=== PATIENT | female | born 1950 | race Caucasian/White ===

== ENCOUNTER 2017-07-06 20:11 | Emergency (ER) | payer MEDICARE ==
[~2017-07-06] VITALS: Ht 160 cm; Wt 71.4 kg
[2017-07-06 20:55] LABS: HEMATOCRIT 40.7 % (37.0-47.0); HEMOGLOBIN 13.7 g/dl (12.0-16.0); IMMATURE GRANULOCYTES 0.2 % (0.0-1.0); MEAN CELL VOLUME 91.7 fL CALC (80.0-100.0); MEAN CORPUSCULAR HGB 30.9 pG CALC (26.0-32.0); MEAN CORPUSCULAR HGB CONC 33.7 g/L CALC (32.0-36.0); NEUT# 5.15 thou/uL (2.00-7.15); RED BLOOD COUNT 4.44 mill/uL (4.20-5.60); RED CELL DISTRI WIDTH 13.4 % (11.5-15.5)
[2017-07-06] MEDS ORDERED: SINGULAIR10 MG PO (20:57)
[2017-07-06] MEDS ORDERED: PROAIR HFA108 MCG/AC (20:57)
[2017-07-06] MEDS ORDERED: LANSOPRAZOLE30 MG PO (20:58)
[2017-07-06] MEDS ORDERED: ALLERGY RE50 MCG/ACT (20:58)
[2017-07-06] MEDS ORDERED: MELOXICAM15 MG PO (20:59)
[2017-07-06] MEDS ORDERED: OXYCOD/APAP1 TA4 PO (20:59)
[2017-07-06] MEDS ORDERED: NEURONTIN300 MG PO (20:59)
[2017-07-06] MEDS ORDERED: TIZANIDINE HCL4 MG PO (21:00)
[2017-07-06] MEDS ORDERED: TRAZODONE50 MG PO (21:00)
[2017-07-06] MEDS ORDERED: XANAX1 MG PO (21:01)
[2017-07-06] MEDS ORDERED: ZOLOFT50 MG PO (21:01)
[2017-07-06] MEDS ORDERED: RISPERIDONE2 MG PO (21:01)
[2017-07-06] MEDS ORDERED: SERTRALINE50 MG PO (21:02)
[2017-07-06 21:04] LABS: ALBUMIN 3.5 g/dL (3.2-5.0); ALKALINE PHOSPHATASE 81 u/l (38-126); ANION GAP 13 (6-22 (CALC)); BILIRUBIN, TOTAL 0.2 mg/dL (0.0-1.4); BUN 13 mg/dL (8-23); BUN/CREATININE RATIO 18 (12-20 (CALC)); CALCIUM 9.4 mg/dL (8.4-10.2); CARBON DIOXIDE 25 mmol/l (22-30); CHLORIDE 105 mmol/l (95-108); CREATININE 0.7 mg/dL (0.5-1.0); GFR > 60 ML/MIN (>=60 (CALC)); GFR FOR AFR.AMER. > 60 ML/MIN (>=60 (CALC)); GLUCOSE 201 mg/dL (82-115); POTASSIUM 3.7 mmol/l (3.5-5.1); SGOT/AST 20 u/l (9-36); SGPT/ALT 22 u/l (11-66); SODIUM 139 mmol/l (137-146); TOTAL PROTEIN 5.8 g/dL (6.3-8.2)
[2017-07-06] MEDS ORDERED: ANTIVERT PO (22:17)
[2017-07-06 22:30] VITALS: BP 117/69
== END 2017-07-06 22:39 | disposition home or self-care (01) ==
LOC: ED 20:11
PROVIDERS: Emergency Medicine
DX: R42 Dizziness and giddiness (principal); K21.9 Gastro-esophageal reflux disease without esophagitis; M19.90 Unspecified osteoarthritis, unspecified site; F31.9 Bipolar disorder, unspecified; F41.9 Anxiety disorder, unspecified; F17.210 Nicotine dependence, cigarettes, uncomplicated

== ENCOUNTER 2017-11-19 07:11 | Emergency (ER) | payer MEDICARE ==
[~2017-11-19] VITALS: Ht 160 cm; Wt 69.5 kg
[~2017-11-19 07:11] MED LIST: ALLERGY RE50 MCG/ACT; ANTIVERT PO; LANSOPRAZOLE30 MG PO; MELOXICAM15 MG PO; NEURONTIN300 MG PO; OXYCOD/APAP1 TA4 PO; PROAIR HFA108 MCG/AC; RISPERIDONE2 MG PO; SERTRALINE50 MG PO; SINGULAIR10 MG PO; TIZANIDINE HCL4 MG PO; TRAZODONE50 MG PO; XANAX1 MG PO; ZOLOFT50 MG PO
[2017-11-19 07:48] LABS: URINE BILIRUBIN - DIPSTICK NEGATIVE (NEGATIVE); URINE COLOR YELLOW; URINE GLUCOSE - DIPSTICK NEGATIVE (NEGATIVE); URINE KETONE NEGATIVE (NEGATIVE); URINE LEUK ESTERASE NEGATIVE (NEGATIVE); URINE NITRITE - DIPSTICK NEGATIVE (Negative); URINE PH 5.5 (4.5-8.0); URINE PROTEIN - DIPSTICK NEGATIVE (NEG-TRACE); URINE SPECIFIC GRAVITY <=1.005; URINE UROBILINOGEN - DIPSTICK 0.2 E.U./dL (0.2)
[2017-11-19 07:50] LABS: HEMATOCRIT 45.7 % (37.0-47.0); HEMOGLOBIN 14.9 g/dl (12.0-16.0); IMMATURE GRANULOCYTES 0.2 % (0.0-1.0); MEAN CELL VOLUME 92.5 fL CALC (80.0-100.0); MEAN CORPUSCULAR HGB 30.2 pG CALC (26.0-32.0); MEAN CORPUSCULAR HGB CONC 32.6 g/L CALC (32.0-36.0); NEUT# 4.25 thou/uL (2.00-7.15); RED BLOOD COUNT 4.94 mill/uL (4.20-5.60); RED CELL DISTRI WIDTH 13.8 % (11.5-15.5)
[2017-11-19 07:50] LABS: URINE BLOOD DIPSTICK NEGATIVE (NEGATIVE); URINE CLARITY CLEAR
[2017-11-19 07:52] LABS: BARBITURATES NEGATIVE (NEGATIVE); COCAINE NEGATIVE (NEGATIVE); METHADONE NEGATIVE (NEGATIVE); OXCYCODONE NEGATIVE (NEGATIVE); TETRAHYDROCANNABIONOL NEGATIVE (NEGATIVE); TRICYLIC ANTIDEPRESSANTS NEGATIVE (NEGATIVE)
[2017-11-19 07:59] LABS: ALBUMIN 3.8 g/dL (3.2-5.0); ALKALINE PHOSPHATASE 77 u/l (38-126); ANION GAP 15 (6-22 (CALC)); BILIRUBIN, TOTAL 0.2 mg/dL (0.0-1.4); BUN 17 mg/dL (8-23); BUN/CREATININE RATIO 21 (12-20 (CALC)); CARBON DIOXIDE 29 mmol/l (22-30); CHLORIDE 98 mmol/l (95-108); CREATININE 0.8 mg/dL (0.5-1.0); GFR > 60 ML/MIN (>=60 (CALC)); GFR FOR AFR.AMER. > 60 ML/MIN (>=60 (CALC)); POTASSIUM 4.4 mmol/l (3.5-5.1); SGOT/AST 21 u/l (9-36); SGPT/ALT 37 u/l (11-66); SODIUM 138 mmol/l (137-146); TOTAL PROTEIN 6.8 g/dL (6.3-8.2)
[2017-11-19 08:43] LABS: TSH, 3RD GENERATION 2.91 uIU/mL (0.47 - 4.68)
[2017-11-19] MEDS ORDERED: ZITHROMAX250 MG PO (09:25)
[2017-11-19 09:43] VITALS: BP 114/80
== END 2017-11-19 09:51 | disposition home or self-care (01) ==
LOC: ED 07:11
PROVIDERS: Emergency Medicine
DX: R42 Dizziness and giddiness (principal); J32.9 Chronic sinusitis, unspecified; R00.1 Bradycardia, unspecified; M19.90 Unspecified osteoarthritis, unspecified site

== ENCOUNTER 2017-12-15 17:36 | Emergency (ER) | payer MEDICARE ==
[~2017-12-15] VITALS: Ht 160 cm; Wt 71.0 kg
[~2017-12-15 17:36] MED LIST changes: +ZITHROMAX250 MG PO
[2017-12-15] MEDS ORDERED: PERCOCET1 TA4 PO (18:13)
[2017-12-15] MEDS ORDERED: IBUPROFEN600 MG PO (19:30)
[2017-12-15 19:38] VITALS: BP 121/70
== END 2017-12-15 19:38 | disposition home or self-care (01) ==
LOC: ED 17:36
DX: S09.11XA Strain of muscle and tendon of head, initial encounter (principal); M19.90 Unspecified osteoarthritis, unspecified site; R42 Dizziness and giddiness; V48.5XXA Car driver injured in noncollision transport accident in traffic accident, initial encounter

== ENCOUNTER 2017-12-25 14:01 | Emergency (ER) | payer MEDICARE ==
[~2017-12-25] VITALS: Ht 160 cm; Wt 52.0 kg
[~2017-12-25 14:01] MED LIST changes: +IBUPROFEN600 MG PO; +PERCOCET1 TA4 PO
[2017-12-25] MEDS ORDERED: TORADOL PO (15:23)
[2017-12-25] MEDS ORDERED: FLEXERIL PO (15:23)
[2017-12-25 15:28] VITALS: BP 138/87
== END 2017-12-25 15:35 | disposition home or self-care (01) ==
LOC: ED 14:01
DX: G89.29 Other chronic pain (principal); M54.2 Cervicalgia; M19.90 Unspecified osteoarthritis, unspecified site

== ENCOUNTER 2018-01-26 12:23 | Emergency (ER) | payer MEDICARE ==
[~2018-01-26] VITALS: Ht 160 cm; Wt 73.0 kg
[~2018-01-26 12:23] MED LIST changes: +FLEXERIL PO; +TORADOL PO
[2018-01-26 13:32] LABS: URINE BILIRUBIN - DIPSTICK NEGATIVE (NEGATIVE); URINE BLOOD DIPSTICK NEGATIVE (NEGATIVE); URINE CLARITY CLEAR; URINE COLOR YELLOW; URINE GLUCOSE - DIPSTICK NEGATIVE (NEGATIVE); URINE KETONE NEGATIVE (NEGATIVE); URINE LEUK ESTERASE NEGATIVE (NEGATIVE); URINE NITRITE - DIPSTICK NEGATIVE (Negative); URINE PH 6.5 (4.5-8.0); URINE PROTEIN - DIPSTICK NEGATIVE (NEG-TRACE); URINE UROBILINOGEN - DIPSTICK 0.2 E.U./dL (0.2)
[2018-01-26 14:13] LABS: HEMATOCRIT 44.1 % (37.0-47.0); HEMOGLOBIN 14.3 g/dl (12.0-16.0); IMMATURE GRANULOCYTES 0.2 % (0.0-1.0); MEAN CELL VOLUME 91.7 fL CALC (80.0-100.0); MEAN CORPUSCULAR HGB 29.7 pG CALC (26.0-32.0); MEAN CORPUSCULAR HGB CONC 32.4 g/L CALC (32.0-36.0); NEUT# 4.91 thou/uL (2.00-7.15); RED BLOOD COUNT 4.81 mill/uL (4.20-5.60); RED CELL DISTRI WIDTH 13.1 % (11.5-15.5)
[2018-01-26 14:34] LABS: ALBUMIN 4.5 g/dL (3.2-5.0); ALKALINE PHOSPHATASE 91 u/l (38-126); AMYLASE 45 u/l (30-110); ANION GAP 13 (6-22 (CALC)); BILIRUBIN, TOTAL 0.4 mg/dL (0.0-1.4); BUN 15 mg/dL (8-23); BUN/CREATININE RATIO 19 (12-20 (CALC)); CARBON DIOXIDE 30 mmol/l (22-30); CHLORIDE 98 mmol/l (95-108); CREATININE 0.8 mg/dL (0.5-1.0); GFR > 60 ML/MIN (>=60 (CALC)); GFR FOR AFR.AMER. > 60 ML/MIN (>=60 (CALC)); LIPASE 209 u/l (23-300); POTASSIUM 4.7 mmol/l (3.5-5.1); SGOT/AST 24 u/l (9-36); SGPT/ALT 31 u/l (11-66); SODIUM 136 mmol/l (137-146); TOTAL PROTEIN 7.6 g/dL (6.3-8.2)
[2018-01-26] MEDS ORDERED: FLEXERIL PO (16:58)
[2018-01-26] MEDS ORDERED: ULTRAM50 M1 PO (16:58)
[2018-01-26 17:35] VITALS: BP 113/57
== END 2018-01-26 17:35 | disposition home or self-care (01) ==
LOC: ED 12:23
PROVIDERS: Emergency Medicine
DX: M79.1 Myalgia (principal); M19.90 Unspecified osteoarthritis, unspecified site; R42 Dizziness and giddiness; Z90.49 Acquired absence of other specified parts of digestive tract
CPT/HCPCS: Q9967

== ENCOUNTER 2018-02-16 18:15 | Emergency (ER) | payer MEDICARE ==
[~2018-02-16] VITALS: Ht 160 cm; Wt 75.0 kg
[~2018-02-16 18:15] MED LIST changes: +ULTRAM50 M1 PO
[2018-02-16] MEDS ORDERED: TIZANIDINE HCL4 MG PO (19:07)
[2018-02-16 19:10] LABS: HEMATOCRIT 39.4 % (37.0-47.0); HEMOGLOBIN 13.1 g/dl (12.0-16.0); IMMATURE GRANULOCYTES 0.1 % (0.0-5.0); MEAN CELL VOLUME 90.6 fL CALC (80.0-100.0); MEAN CORPUSCULAR HGB 30.1 pG CALC (26.0-32.0); MEAN CORPUSCULAR HGB CONC 33.2 g/L CALC (32.0-36.0); NEUT# 4.18 thou/uL (2.00-7.15); RED BLOOD COUNT 4.35 mill/uL (4.20-5.60); RED CELL DISTRI WIDTH 12.8 % (11.5-15.5)
[2018-02-16 19:39] LABS: ALBUMIN 3.8 g/dL (3.2-5.0); BILIRUBIN, TOTAL 0.4 mg/dL (0.0-1.4); CREATININE 1.2 mg/dL (0.5-1.0); POTASSIUM 4.6 mmol/l (3.5-5.1); TOTAL PROTEIN 6.4 g/dL (6.3-8.2)
[2018-02-16 22:09] LABS: URINE BILIRUBIN - DIPSTICK NEGATIVE (NEGATIVE); URINE BLOOD DIPSTICK NEGATIVE (NEGATIVE); URINE COLOR YELLOW; URINE GLUCOSE - DIPSTICK NEGATIVE (NEGATIVE); URINE KETONE NEGATIVE (NEGATIVE); URINE LEUK ESTERASE TRACE (NEGATIVE); URINE NITRITE - DIPSTICK NEGATIVE (Negative); URINE PH 5.5 (4.5-8.0); URINE PROTEIN - DIPSTICK NEGATIVE (NEG-TRACE); URINE SPECIFIC GRAVITY <=1.005; URINE UROBILINOGEN - DIPSTICK 0.2 E.U./dL (0.2)
[2018-02-16 22:10] LABS: URINE CLARITY CLEAR
[2018-02-16 22:30] VITALS: BP 114/69
[2018-02-16] MEDS ORDERED: MIRALAX3350 N1 PO (22:30)
== END 2018-02-16 22:30 | disposition home or self-care (01) ==
LOC: ED 18:15
PROVIDERS: Family Medicine
DX: K59.00 Constipation, unspecified (principal)

== ENCOUNTER 2018-02-19 22:38 | Emergency (ER) | payer MEDICARE ==
[~2018-02-19] VITALS: Ht 160 cm; Wt 73.6 kg
[~2018-02-19 22:38] MED LIST changes: +MIRALAX3350 N1 PO
[2018-02-19 23:05] LABS: HEMATOCRIT 40.1 % (37.0-47.0); HEMOGLOBIN 13.3 g/dl (12.0-16.0); IMMATURE GRANULOCYTES 0.2 % (0.0-5.0); MEAN CELL VOLUME 90.9 fL CALC (80.0-100.0); MEAN CORPUSCULAR HGB 30.2 pG CALC (26.0-32.0); MEAN CORPUSCULAR HGB CONC 33.2 g/L CALC (32.0-36.0); NEUT# 4.05 thou/uL (2.00-7.15); RED BLOOD COUNT 4.41 mill/uL (4.20-5.60); RED CELL DISTRI WIDTH 12.9 % (11.5-15.5)
[2018-02-19 23:18] LABS: ALBUMIN 3.9 g/dL (3.2-5.0); ALKALINE PHOSPHATASE 75 u/l (38-126); ANION GAP 13 (6-22 (CALC)); BILIRUBIN, TOTAL 0.4 mg/dL (0.0-1.4); BUN 12 mg/dL (8-23); BUN/CREATININE RATIO 16 (12-20 (CALC)); CARBON DIOXIDE 29 mmol/l (22-30); CHLORIDE 103 mmol/l (95-108); CREATININE 0.8 mg/dL (0.5-1.0); GFR > 60 ML/MIN (>=60 (CALC)); GFR FOR AFR.AMER. > 60 ML/MIN (>=60 (CALC)); POTASSIUM 4.3 mmol/l (3.5-5.1); SGOT/AST 21 u/l (9-36); SGPT/ALT 25 u/l (11-66); SODIUM 141 mmol/l (137-146); TOTAL PROTEIN 6.6 g/dL (6.3-8.2)
[2018-02-19 23:42] LABS: URINE BILIRUBIN - DIPSTICK NEGATIVE (NEGATIVE); URINE BLOOD DIPSTICK NEGATIVE (NEGATIVE); URINE COLOR YELLOW; URINE GLUCOSE - DIPSTICK NEGATIVE (NEGATIVE); URINE KETONE NEGATIVE (NEGATIVE); URINE LEUK ESTERASE NEGATIVE (NEGATIVE); URINE NITRITE - DIPSTICK NEGATIVE (Negative); URINE PROTEIN - DIPSTICK NEGATIVE (NEG-TRACE); URINE UROBILINOGEN - DIPSTICK 0.2 E.U./dL (0.2)
[2018-02-19 23:43] LABS: URINE CLARITY CLEAR
[2018-02-20 02:09] VITALS: BP 97/51
== END 2018-02-20 02:00 | disposition home or self-care (01) ==
LOC: ED 22:38
PROVIDERS: Emergency Medicine
DX: K59.00 Constipation, unspecified (principal); R10.13 Epigastric pain; Z79.891 Long term (current) use of opiate analgesic; Z98.0 Intestinal bypass and anastomosis status

== ENCOUNTER 2018-03-08 00:37 | Emergency (ER) | payer MEDICARE ==
[~2018-03-08] VITALS: Ht 160 cm; Wt 72.7 kg
[2018-03-08 01:41] LABS: HEMATOCRIT 40.9 % (37.0-47.0); HEMOGLOBIN 13.4 g/dl (12.0-16.0); IMMATURE GRANULOCYTES 0.2 % (0.0-5.0); MEAN CELL VOLUME 92.3 fL CALC (80.0-100.0); MEAN CORPUSCULAR HGB 30.2 pG CALC (26.0-32.0); MEAN CORPUSCULAR HGB CONC 32.8 g/L CALC (32.0-36.0); NEUT# 4.77 thou/uL (2.00-7.15); RED BLOOD COUNT 4.43 mill/uL (4.20-5.60); RED CELL DISTRI WIDTH 13.2 % (11.5-15.5)
[2018-03-08 02:00] LABS: ALKALINE PHOSPHATASE 105 u/l (38-126); ANION GAP 15 (6-22 (CALC)); BILIRUBIN, TOTAL 0.4 mg/dL (0.0-1.4); BUN 20 mg/dL (8-23); BUN/CREATININE RATIO 26 (12-20 (CALC)); CARBON DIOXIDE 25 mmol/l (22-30); CHLORIDE 108 mmol/l (95-108); CREATININE 0.8 mg/dL (0.5-1.0); GFR > 60 ML/MIN (>=60 (CALC)); GFR FOR AFR.AMER. > 60 ML/MIN (>=60 (CALC)); POTASSIUM 3.6 mmol/l (3.5-5.1); SGPT/ALT 24 u/l (11-66); SODIUM 145 mmol/l (137-146); TOTAL PROTEIN 7.1 g/dL (6.3-8.2)
[2018-03-08 02:04] LABS: SGOT/AST 49 u/l (9-36)
[2018-03-08 02:12] LABS: MYOGLOBIN 28 ng/mL (0 - 62)
[2018-03-08 02:36] LABS: URINE BILIRUBIN - DIPSTICK NEGATIVE (NEGATIVE); URINE BLOOD DIPSTICK NEGATIVE (NEGATIVE); URINE COLOR YELLOW; URINE GLUCOSE - DIPSTICK NEGATIVE (NEGATIVE); URINE KETONE NEGATIVE (NEGATIVE); URINE LEUK ESTERASE TRACE (NEGATIVE); URINE NITRITE - DIPSTICK NEGATIVE (Negative); URINE PROTEIN - DIPSTICK NEGATIVE (NEG-TRACE); URINE UROBILINOGEN - DIPSTICK 0.2 E.U./dL (0.2)
[2018-03-08 02:37] LABS: URINE CLARITY CLEAR
[2018-03-08 03:10] VITALS: BP 152/70
== END 2018-03-08 03:24 | disposition home or self-care (01) ==
LOC: ED 00:37
PROVIDERS: Emergency Medicine
DX: G89.29 Other chronic pain (principal); R52 Pain, unspecified; E16.2 Hypoglycemia, unspecified; R00.1 Bradycardia, unspecified

== ENCOUNTER → 2018-04-18 | Outpatient (REF) | payer MEDICARE | END | disposition home or self-care (01) | LOC: CT 04-02 11:00 | PROVIDERS: ATTEND Internal Medicine Geriatric Medicine | DX: R10.9 Unspecified abdominal pain (principal) ==

== ENCOUNTER 2018-07-08 15:16 | Emergency (ER) | payer MEDICARE ==
[~2018-07-08] VITALS: Ht 160 cm; Wt 80.0 kg
[2018-07-08] MEDS ORDERED: FLEXERIL5 MG PO (16:37)
[2018-07-08 16:43] LABS: URINE BILIRUBIN - DIPSTICK NEGATIVE (NEGATIVE); URINE BLOOD DIPSTICK TRACE-LYSED (NEGATIVE); URINE COLOR YELLOW; URINE GLUCOSE - DIPSTICK NEGATIVE (NEGATIVE); URINE KETONE NEGATIVE (NEGATIVE); URINE LEUK ESTERASE NEGATIVE (NEGATIVE); URINE NITRITE - DIPSTICK NEGATIVE (Negative); URINE PROTEIN - DIPSTICK TRACE mg/dL (NEG-TRACE); URINE SPECIFIC GRAVITY 1.025; URINE UROBILINOGEN - DIPSTICK 0.2 E.U./dL (0.2)
[2018-07-08 17:07] LABS: HEMATOCRIT 42.6 % (37.0-47.0); HEMOGLOBIN 13.8 g/dl (12.0-16.0); IMMATURE GRANULOCYTES 0.3 % (0.0-5.0); MEAN CELL VOLUME 90.4 fL CALC (80.0-100.0); MEAN CORPUSCULAR HGB 29.3 pG CALC (26.0-32.0); MEAN CORPUSCULAR HGB CONC 32.4 g/L CALC (32.0-36.0); NEUT# 6.33 thou/uL (2.00-7.15); RED BLOOD COUNT 4.71 mill/uL (4.20-5.60); RED CELL DISTRI WIDTH 13.8 % (11.5-15.5)
[2018-07-08 17:17] LABS: ALBUMIN 4.2 g/dL (3.2-5.0); ALKALINE PHOSPHATASE 113 u/l (38-126); ANION GAP 15 (6-22 (CALC)); BILIRUBIN, TOTAL 0.5 mg/dL (0.0-1.4); BUN 9 mg/dL (8-23); BUN/CREATININE RATIO 10 (12-20 (CALC)); CARBON DIOXIDE 27 mmol/l (22-30); CHLORIDE 104 mmol/l (95-108); CREATININE 0.9 mg/dL (0.5-1.0); GFR > 60 ML/MIN (>=60 (CALC)); GFR FOR AFR.AMER. > 60 ML/MIN (>=60 (CALC)); LIPASE 32 u/l (23-300); POTASSIUM 3.8 mmol/l (3.5-5.1); SGOT/AST 24 u/l (9-36); SODIUM 143 mmol/l (137-146); TOTAL PROTEIN 7.9 g/dL (6.3-8.2)
[2018-07-08] MEDS ORDERED: METRONIDAZOL500 MG PO (20:01)
[2018-07-08] MEDS ORDERED: BENTYL10 MG PO (20:01)
[2018-07-08] MEDS ORDERED: CIPROFLOXACN500 MG PO (20:01)
[2018-07-08 20:15] VITALS: BP 121/69
== END 2018-07-08 20:17 | disposition home or self-care (01) ==
LOC: ED 15:16
DX: K52.9 Noninfective gastroenteritis and colitis, unspecified (principal); K50.10 Crohn's disease of large intestine without complications
CPT/HCPCS: Q9967

== ENCOUNTER 2018-08-14 18:16 | Emergency (ER) | payer MEDICARE ==
[~2018-08-14] VITALS: Ht 162.6 cm; Wt 74.9 kg
[~2018-08-14 18:16] MED LIST changes: +BENTYL10 MG PO; +CIPROFLOXACN500 MG PO; +FLEXERIL5 MG PO; +METRONIDAZOL500 MG PO
[2018-08-14] MEDS ORDERED: LIDOCAINE51 TD (18:37)
[2018-08-14] MEDS ORDERED: BUTALBITAL/APAP1 CAP PO (18:39)
[2018-08-14] MEDS ORDERED: PREDNISONE50 MG PO (18:57)
[2018-08-14 19:05] VITALS: BP 144/83
== END 2018-08-14 19:05 | disposition home or self-care (01) ==
LOC: ED 18:16
DX: M26.603 Bilateral temporomandibular joint disorder, unspecified (principal); R68.84 Jaw pain; M43.6 Torticollis

== ENCOUNTER → 2018-09-10 | Outpatient (REF) | payer MEDICARE ==
[~2018-09-10] MED LIST changes: +BUTALBITAL/APAP1 CAP PO; +LIDOCAINE51 TD; +PREDNISONE50 MG PO
[2018-09-10 08:09] LABS: HEMATOCRIT 43.7 % (37.0-47.0); IMMATURE GRANULOCYTES 0.3 % (0.0-5.0); MEAN CELL VOLUME 92.4 fL CALC (80.0-100.0); MEAN CORPUSCULAR HGB 29.6 pG CALC (26.0-32.0); NEUT# 4.24 thou/uL (2.00-7.15); RED BLOOD COUNT 4.73 mill/uL (4.20-5.60); RED CELL DISTRI WIDTH 14.3 % (11.5-15.5)
[2018-09-10 08:36] LABS: ALBUMIN 4.4 g/dL (3.2-5.0); ALKALINE PHOSPHATASE 100 u/l (38-126); ANION GAP 18 (6-22 (CALC)); BILIRUBIN, TOTAL 0.4 mg/dL (0.0-1.4); BUN 18 mg/dL (8-23); BUN/CREATININE RATIO 22 (12-20 (CALC)); C-REACTIVE PROTEIN < 0.5 mg/dL (0-0.9); CARBON DIOXIDE 30 mmol/l (22-30); CHLORIDE 98 mmol/l (95-108); CREATININE 0.8 mg/dL (0.5-1.0); GFR > 60 ML/MIN (>=60 (CALC)); GFR FOR AFR.AMER. > 60 ML/MIN (>=60 (CALC)); SGOT/AST 23 u/l (9-36); SODIUM 141 mmol/l (137-146); TOTAL PROTEIN 7.1 g/dL (6.3-8.2)
[2018-09-10 08:37] LABS: POTASSIUM 4.7 mmol/l (3.5-5.1)
== END | disposition home or self-care (01) ==
LOC: MAMMO 07:11
PROVIDERS: ATTEND Internal Medicine Geriatric Medicine
DX: Z12.31 Encounter for screening mammogram for malignant neoplasm of breast (principal); N95.1 Menopausal and female climacteric states; K21.9 Gastro-esophageal reflux disease without esophagitis; E78.5 Hyperlipidemia, unspecified; M15.9 Polyosteoarthritis, unspecified